=== PATIENT | male | born 1995 | race Two or more races ===

== ENCOUNTER 2020-10-29 21:10 | Emergency (ER) | payer SELFPAY ==
[~2020-10-29] VITALS: Ht 160 cm; Wt 75.0 kg
[2020-10-29] MEDS ORDERED: IV NORMAL SALINE 1000ML BAG 1,000 ML IV SCH (23:00)
[2020-10-29 23:16] LABS: BILIRUBIN,URINE SMALL (NEG); CLARITY,URINE CLEAR; COLOR,URINE AMBER; NITRITE,URINE NEGATIVE (NEG); PH,URINE 6.5 (<5.0-8.0); PROTEIN,URINE 100 mg/dL (NEG-TRACE)
[2020-10-29 23:22] LABS: BACTERIA,URINE 0 /HPF (0-FEW); RBC,URINE 0 /HPF (0-2); WBC,URINE 0 /HPF (0-4)
[2020-10-29 23:27] LABS: BASO % 0 % (0-3); EOS % 0 % (0-3); HEMATOCRIT 44.9 % (39.0-53.0); HEMOGLOBIN 15.8 g/dL (13.0-17.5); LYMPH # 0.8 x10^3/uL (1.0-4.8); LYMPH % 15 % (24-48); MEAN CORPUSCULAR HEMOGLOBIN 30 pg (25-35); MEAN CORPUSCULAR HGB CONC 35 g/dL (31-37); MEAN CORPUSCULAR VOLUME 85 fL (79-100); MONO # 0.5 x10^3/uL (0.0-1.1); MONO % 9 % (0-9); NEUT % 76 % (31-73); PLATELET COUNT 233 x10^3/uL (140-400); RED BLOOD COUNT 5.28 x10^6/uL (4.30-5.70); RED CELL DISTRIBUTION WIDTH 14.2 % (11.5-14.5); WHITE BLOOD COUNT 5.3 x10^3/uL (4.0-11.0)
[2020-10-29] MEDS ORDERED: KETOROLAC 30 MG/ML VIAL. IVP ONE (23:30)
[2020-10-29] MEDS ORDERED: ONDANSETRON PF 4 MG/2 ML VIAL. IVP ONE (23:30)
[2020-10-29 23:38] LABS: CALCIUM 8.6 mg/dL (8.5-10.1); CREATININE 0.9 mg/dL (0.7-1.3); GFR 101.2; POTASSIUM 3.7 mmol/L (3.5-5.1)
[2020-10-29 23:45] LABS: ALBUMIN 3.4 g/dL (3.4-5.0); ALBUMIN/GLOBULIN RATIO 0.8 (1.0-1.7); MAGNESIUM 2.1 mg/dL (1.8-2.4); TOTAL BILIRUBIN 0.4 mg/dL (0.2-1.0); TOTAL PROTEIN 7.8 g/dL (6.4-8.2)
--- NOTE | 2020-10-30 00:13 | RAD ---
Exam: CT abdomen/pelvis without intravenous contrast Indication: Left flank pain Comparison: None Technique: Helical CT imaging performed of the abdomen and pelvis without the use of intravenous cont rast. Sagittal and coronal reformats were obtained. One or more of the following individualized dose reduction techniques were utilized for this examinat ion: 1. Automated exposure control 2. Adjustment of the mA and/or kV according to patient size 3. Use of iterative reconstruction technique. Findings: Inherently limited evaluation without intravenous contrast. Exam is also limited by motion artifact. Lower chest: There are bilateral lower lobe consolidations and patchy consolidative opacities in the middle lobe and lingula. No pleural effusion. The heart is normal in size. Liver: Unremarkable noncontrast appearance of the liver. Gallbladder/Biliary Tree: Normal Pancreas: Normal Spleen: Normal Adrenal Glands: Normal. Kidneys/Ureters/Bladder: Kidneys, ureters, and bladder are normal. No urolithiasis or hydronephrosis. Reproductive Organs: Prostate gland is normal. Stomach, small bowel, and colon: Stomach, small bowel, colon, and appendix are unremarkable. Vasculature: No aortic aneurysm. Lymph Nodes: There are multiple prominent mesenteric and periaortic lymph nodes, nonspecific. Peritoneum and retroperitoneum: No free fluid or free air. Bones: No acute osseous abnormality. Impression: 1. No urolithiasis or hydronephrosis. 2. Consolidations in the lower lobes and patchy consolidative opacities in the right middle lobe and lingula suspicious for multifocal pneumonia. 3. Multiple prominent mesenteric and retroperitoneal lymph nodes. This is nonspecific and may be mary ctive. Neoplastic process is not excluded. Electronically signed by: Isabel Gusman MD (10/30/2020 12:11 AM) [id number]
[2020-10-30] MEDS ORDERED: IOHEXOL 300 MG/ML 100ML VIAL. ONE (00:20)
--- NOTE | 2020-10-30 00:37 | RAD ---
EXAM: XR CHEST 1V 10/29/2020 11:43 PM CLINICAL INDICATION: Shortness of breath COMPARISON: None TECHNIQUE: AP upright view of the chest FINDINGS: The heart is normal in size. Lungs are adequately expanded. There are retrocardiac opaciti es and subtle ill-defined patchy opacities in the left lung and right lung base. No pleural effusion or pneumothorax. IMPRESSION: Retrocardiac opacities and subtle scattered bilateral ill-defined opacities suspicious f or multifocal infection. Electronically signed by: Isabel Gusamn MD (10/30/2020 12:35 AM) [id number]
--- NOTE | 2020-10-30 00:42 | PHYS DOC ---
Past Medical History Past Surgical History: No Surgical History Smoking Status: Light Tobacco Smoker Alcohol Use: None General Adult EDM: Chief Complaint: FLANK PAIN HPI: HPI: Patient is a 25 year old male who present to ER due to bilateral flank pain, worse on left side. Patient states symptoms have been going on for 4 days. Patient denies any nausea vomiting, no trouble breathing, no chest pain. Patient had nonproductive cough for few days as well. Patient is not vaccinated for COVID-19. Patient has no previous history of kidney stone, he is not on any medication currently. Review of Systems: Review of Systems: Constitutional: Denies fever or chills. [] Eyes: Denies change in visual acuity. [] HENT: Denies nasal congestion or sore throat. [] Respiratory: Positive cough, no shortness of air. Cardiovascular: Denies chest pain or edema. [] GI: Positive for bilateral flank pain, no nausea vomiting, no diarrhea. : Denies dysuria. [] Musculoskeletal: Denies back pain or joint pain. [] Integument: Denies rash. [] Neurologic: Denies headache, focal weakness or sensory changes. [] Endocrine: Denies polyuria or polydipsia. [] Lymphatic: Denies swollen glands. [] Psychiatric: Denies depression or anxiety. [] Heart Score: C/O Chest Pain: N/A Risk Factors: Risk Factors: DM, Current or recent (<one month) smoker, HTN, HLP, family hi story of CAD, obesity. Risk Scores: Score 0 - 3: 2.5% MACE over next 6 weeks - Discharge Home Score 4 - 6: 20.3% MACE over next 6 weeks - Admit for Clinical Observation Score 7 - 10: 72.7% MACE over next 6 weeks - Early Invasive Strategies Current Medications: Current Medications Medications (Trade) Dose Ordered Sig/Michaela Start Time Stop Time Status Last Admin Dose Admin Iohexol (Omnipaque 300 Mg/ml) 100 ml STK-MED ONCE 10/30/20 00:20 10/30/20 00:20 DC Ketorolac Tromethamine (Toradol 30mg Vial) 30 mg 1X ONCE 10/29/20 23:30 10/29/20 23:31 DC 10/29/20 23:26 30 MG Ondansetron HCl (Zofran) 4 mg 1X ONCE 10/29/20 23:30 9/1/21 23:31 DC 10/29/20 23:26 4 MG Sodium Chloride 1,000 ml @ 1,000 mls/hr Q1H 10/29/20 23:00 10/29/20 23:59 DC 10/29/20 23:27 1,000 MLS/HR Allergies: Allergies: Allergies Coded Allergies Type Severity Reaction Last Updated Verified No Known Drug Allergies 10/29/20 No Physical Exam: PE: Constitutional: Well developed, well nourished, no acute distress, non-toxic appearance. [] HENT: Normocephalic, atraumatic, bilateral external ears normal, oropharynx moist, no oral exudates, nose normal. [] Eyes: PERRLA, EOMI, conjunctiva normal, no discharge. [] Neck: Normal range of motion, no tenderness, supple, no stridor. [] Cardiovascular:Heart rate regular rhythm, no murmur [] Lungs & Thorax: Bilateral breath sounds with crackles at lung bases to auscultation [] Abdomen: Bowel sounds normal, soft, no tenderness, no masses, no pulsatile masses. [] Skin: Warm, dry, no erythema, no rash. [] Back: No tenderness, no CVA tenderness. [] Extremities: No tenderness, no cyanosis, no clubbing, ROM intact, no edema. [] Neurologic: Alert and oriented X 3, normal motor function, normal sensory function, no focal deficits noted. [] Psychologic: Affect normal, judgement normal, mood normal. [] Current Patient Data: Labs: Laboratory Tests Test 10/29/20 23:09 10/29/20 23:21 Urine Collection Type Unknown Urine Color Cally Urine Clarity Clear Urine pH 6.5 (<5.0-8.0) Urine Specific [place] >=1.030 (1.000-1.030) Urine Protein 100 mg/dL (NEG-TRACE) Urine Glucose (UA) Negative mg/dL (NEG) Urine Ketones (Stick) Trace mg/dL (NEG) Urine Blood Negative (NEG) Urine Nitrite Negative (NEG) Urine Bilirubin Small (NEG) Urine Urobilinogen Dipstick 1.0 mg/dL (0.2 mg/dL) Urine Leukocyte Esterase Trace (NEG) Urine RBC 0 /HPF (0-2) Urine WBC 0 /HPF (0-4) Urine Squamous Epithelial Cells Occ /LPF Urine Bacteria 0 /HPF (0-FEW) Urine Mucus Marked /LPF White Blood Count 5.3 x10^3/uL (4.0-11.0) Red Blood Count 5.28 x10^6/uL (4.30-5.70) Hemoglobin 15.8 g/dL (13.0-17.5) Hematocrit 44.9 % (39.0-53.0) Mean Corpuscular Volume 85 fL (79-100) Mean Corpuscular Hemoglobin 30 pg (25-35) Mean Corpuscular Hemoglobin Concent 35 g/dL (31-37) Red Cell Distribution Width 14.2 % (11.5-14.5) Platelet Count 233 x10^3/uL (140-400) Neutrophils (%) (Auto) 76 % (31-73) H Lymphocytes (%) (Auto) 15 % (24-48) L Monocytes (%) (Auto) 9 % (0-9) Eosinophils (%) (Auto) 0 % (0-3) Basophils (%) (Auto) 0 % (0-3) Neutrophils # (Auto) 4.0 x10^3/uL (1.8-7.7) Lymphocytes # (Auto) 0.8 x10^3/uL (1.0-4.8) L Monocytes # (Auto) 0.5 x10^3/uL (0.0-1.1) Eosinophils # (Auto) 0.0 x10^3/uL (0.0-0.7) Basophils # (Auto) 0.0 x10^3/uL (0.0-0.2) Sodium Level 136 mmol/L (136-145) Potassium Level 3.7 mmol/L (3.5-5.1) Chloride Level 98 mmol/L (98-107) Carbon Dioxide Level 28 mmol/L (21-32) Anion Gap 10 (6-14) Blood Urea Nitrogen 6 mg/dL (8-26) L Creatinine 0.9 mg/dL (0.7-1.3) Estimated GFR (Cockcroft-Gault) 101.2 BUN/Creatinine Ratio 7 (6-20) Glucose Level 122 mg/dL (70-99) H Calcium Level 8.6 mg/dL (8.5-10.1) Magnesium Level 2.1 mg/dL (1.8-2.4) Total Bilirubin 0.4 mg/dL (0.2-1.0) Aspartate Amino Transferase (AST) 35 U/L (15-37) Alanine Aminotransferase (ALT) 31 U/L (16-63) Alkaline Phosphatase 85 U/L (46-116) Total Protein 7.8 g/dL (6.4-8.2) Albumin 3.4 g/dL (3.4-5.0) Albumin/Globulin Ratio 0.8 (1.0-1.7) L Lipase 81 U/L (73-393) Laboratory Tests 10/29/20 23:21 Laboratory Tests 10/29/20 23:21 Vital Signs: Vital Signs Date Time Temp Pulse Resp B/P (MAP) Pulse Ox O2 Delivery O2 Flow Rate FiO2 10/30/20 00:00 88 18 130/80 (97) 96 Room Air 10/29/20 23:02 99.2 99.2 EKG: EKG: [] Radiology/Procedures: Radiology/Procedures: [][facility] [address] [place] [address] IMAGING REPORT Signed PATIENT: STACY SERRA ACCOUNT: [id number] : 1995 LOCATION: ER AGE: 25 SEX: M EXAM STATUS: REG ER ORD. PHYSICIAN: CAROLE ALMANZAR DO REASON: LEFT FLANK PAIN PROCEDURE: CT ABDOMEN PELVIS WO CONTRAST Exam: CT abdomen/pelvis without intravenous contrast Indication: Left flank pain Comparison: None Technique: Helical CT imaging performed of the abdomen and pelvis without the use of intravenous contrast. Sagittal and coronal reformats were obtained. One or more of the following individualized dose reduction techniques were utilized for this examination: 1. Automated exposure control 2. Adjustment of the mA and/or kV according to patient size 3. Use of iterative reconstruction technique. Findings: Inherently limited evaluation without intravenous contrast. Exam is also limited by motion artifact. Lower chest: There are bilateral lower lobe consolidations and patchy consolidative opacities in the middle lobe and lingula. No pleural effusion. The heart is normal in size. Liver: Unremarkable noncontrast appearance of the liver. Gallbladder/Biliary Tree: Normal Pancreas: Normal Spleen: Normal Adrenal Glands: Normal. Kidneys/Ureters/Bladder: Kidneys, ureters, and bladder are normal. No urolithiasis or hydronephrosis. Reproductive Organs: Prostate gland is normal. Stomach, small bowel, and colon: Stomach, small bowel, colon, and appendix are unremarkable. Vasculature: No aortic aneurysm. Lymph Nodes: There are multiple prominent mesenteric and periaortic lymph nodes, nonspecific. Peritoneum and retroperitoneum: No free fluid or free air. Bones: No acute osseous abnormality. Impression: 1. No urolithiasis or hydronephrosis. 2. Consolidations in the lower lobes and patchy consolidative opacities in the right middle lobe and lingula suspicious for multifocal pneumonia. 3. Multiple prominent mesenteric and retroperitoneal lymph nodes. This is nonspecific and may be reactive. Neoplastic process is not excluded. Electronically signed by: Isabel Gusman MD (10/30/2020 12:11 AM) [id number] DICTATED and SIGNED BY: ISABEL GUSMAN MD DATE: 10/30/20 [id number] 0 Course & Med Decision Making: Course & Med Decision Making Pertinent Labs and Imaging studies reviewed. (See chart for details) Patient is a 25-year-old male who present to ER due to bilateral flank pain, CT scan of head abdomen pelvis showed bilateral lower lobe infiltration system with pneumonia. COVID-19 infection was suspected. Rapid Covid test came back negative. Patient was discharged home with prescription for antibiotics, his oxygen saturation was 100% on room air. Dragon Disclaimer: DragChroma Disclaimer: This electronic medical record was generated, in whole or in part, using a voice recognition dictation system. Departure Departure Impression: Primary Impression: Flank pain Additional Impressions: Pneumonia Person under investigation for COVID-19 Disposition: HOME / SELF CARE / HOMELESS Condition: STABLE Referrals: NO PCP (PCP) Please follow up with [facility] this week. [address], [address] [place] [address] Phone number: [phone] Patient Instructions: Flank Pain, Pneumonia, Adult Additional Instructions: Thank you for visiting our Emergency Department. We appreciate you trusting us with your care. If any additional problems come up don't hesitate to return to visit us. Please follow up with your primary care provider so they can plan additional care if needed and know about the problem that you had. If symptoms worsen come back to the Emergency Department. Any concerning symptoms that start such as chest pain, shortness of air, weakness or numbness on one side of the body, running high fevers or any other concerning symptoms return to the ER. Scripts Cefdinir (CEFDINIR) 300 Mg Capsule 1 CAP PO BID for 10 Days, #20 CAP Prov: CAROLE ALMANZAR DO 10/30/20 CAROLE ALMANZAR DO Oct 30, 2020 00:42
[2020-10-30] MEDS ORDERED: methylPREDNISolone SOD SUCC PF 125 MG/2 ML VIAL. IV ONE (00:45)
[2020-10-30] MEDS ORDERED: AZITHROMYCIN 250 MG TABLET. PO ONE (00:45)
[2020-10-30] MEDS ORDERED: cefTRIAXone IV Push 1 GM VIAL. IVP ONE (00:45)
[2020-10-30 01:49] VITALS: BP 123/69
[2020-10-30] MEDS ORDERED: CEFD300C PO (02:02)
--- NOTE | 2020-10-30 18:02 | NUR ---
IP: Attempted to notify pt of positive covid test and the need to quarantine. Pt does not speak [place] Citizen. No one available to assist. 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 Notified [facility] of this notification.
== END 2020-10-30 02:15 | disposition home or self-care (01) ==
LOC: ER 21:10
DX: U07.1 COVID-19 (principal); J18.9 Pneumonia, unspecified organism; R10.9 Unspecified abdominal pain; Z72.0 Tobacco use
CPT/HCPCS: 36415; 71045; 74176; 80053; 81001; 83690; 83735; 85025; 87086; 87426; 96361; 96374; 96375; 99285; J0696; J1885; J2405; J2930; J7030; U0003; U0005